=== PATIENT | female | born 1970 | race Caucasian/White ===

== ENCOUNTER 2020-04-26 15:06 | Emergency (ER) | payer OTHER, SELFPAY ==
[2020-04-26 15:23] VITALS: BP 94/57; PULSE 93; RESP 16; TEMP 36.7; O2SAT 97
--- NOTE | 2020-04-26 16:09 | ED.SKABFB ---
HPI - Skin/Abscess/Foreign Bdy General Chief complaint: Skin/Abscess/Foreign Body <Rayne Sofia PA-C - Last Filed: 04/26/20 16:16> Stated complaint: breaking out in a rash <Rayne Sofia PA-C - Last Filed: 04/26/20 16:16> Time Seen by Provider: 04/26/20 15:27 <Rayne Sofia PA-C - Last Filed: 04/26/20 16:16> Source: patient <Rayne Sofia PA-C - Last Filed: 04/26/20 16:16> Mode of arrival: ambulatory <Rayne Sofia PA-C - Last Filed: 04/26/20 16:16> Limitations: no limitations <Rayne Sofia PA-C - Last Filed: 04/26/20 16:16> History of Present Illness HPI narrative: This is a 49 year old female that presents to the ER for rash x 1 week. Reports she noted a rash after being in her garden. Reports the rash is itchy. It started on her legs. She now has some lesions on her arms and back. She has taken Benadryl with little relief. No new lotions, medications or soaps. No one in the household with similar rash. Denies fever. <Rayne Sofia PA-C - Last Filed: 04/26/20 16:16> Related Data Allergies/Adverse reactions: Allergies Allergy/AdvReac Type Severity Reaction Status Date / Time No Known Allergies Allergy Unverified 04/26/20 15:26 <Rayne Sofia PA-C - Last Filed: 04/26/20 16:16> Review of Systems Review of Systems: Narrative: CONSTITUTIONAL: Denies fever SKIN: Reports rash and itching. <Rayne Sofia PA-C - Last Filed: 04/26/20 16:16> All systems reviewed & are unremarkable except as noted in HPI and below <Rayne Sofia PA-C - Last Filed: 04/26/20 16:16> PMFSH Past Medical History Medical History: Medical History (Updated 04/26/20 @ 16:16 by Rayne Sofia PA-C) No active medical problems <Rayne Sofia PA-C - Last Filed: 04/26/20 16:16> Family History Family History: Family History (Updated 05/14/14 @ 07:13 by DOCTOR UNKNOWN) Mother Hypertension Family history of Alzheimer's disease Father Acute myocardial infarction <LÓPEZ Wilcox Last Filed: 04/26/20 16:16> Social History Social History: Social History Alcohol intake: current Gender identity (if verbalized by the patient): Female <LÓPEZ Wilcox Last Filed: 04/26/20 16:16> Exam Narrative: Exam Narrative: GENERAL: Well-appearing, well-nourished, and in no acute distress. HEAD: Normocephalic, atraumatic. EYES: EOMI. EXTREMITIES: Normal range of motion. No edema. SKIN: Warm, dry. Small (0.5cm) scattered red papules and scabs present on the legs. A few noted on the upper arms and back NEURO: No focal deficits. Alert and oriented x3. PSYCH: Normal mood and affect <LÓPEZ Wilcox Last Filed: 04/26/20 16:16> Course Vital Signs Vital signs: Vital Signs Temperature 36.7 C 04/26/20 15:23 Pulse Rate 93 04/26/20 15:23 Respiratory Rate 16 04/26/20 15:23 Blood Pressure 94/57 L 04/26/20 15:23 Pulse Oximetry 97 04/26/20 15:23 Temperature 36.7 C 04/26/20 15:23 Pulse Rate 93 04/26/20 15:23 Respiratory Rate 16 04/26/20 15:23 Blood Pressure 94/57 L 04/26/20 15:23 Pulse Oximetry 97 04/26/20 15:23 <LÓPEZ Wilcox Last Filed: 04/26/20 16:16> Vital Signs Temperature 36.7 C 04/26/20 15:23 Pulse Rate 93 04/26/20 15:23 Respiratory Rate 16 04/26/20 15:23 Blood Pressure 94/57 L 04/26/20 15:23 Pulse Oximetry 97 04/26/20 15:23 Temperature 36.7 C 04/26/20 15:23 Pulse Rate 93 04/26/20 15:23 Respiratory Rate 16 04/26/20 15:23 Blood Pressure 94/57 L 04/26/20 15:23 Pulse Oximetry 97 04/26/20 15:23 <Karen Mcmanus MD - Last Filed: 04/26/20 16:31> MDM - Skin/Abscess/Foreign Bdy MDM Narrative Medical decision making narrative: Patient presents to the emergency department for itchy rash x1 week. She is afebrile. Scattered scabs and papules noted on the legs primarily. Will be started on steroid taper and was instructed on ant
== END 2020-04-26 16:30 | disposition home or self-care (01) ==
PROVIDERS: Emergency Provider Emergency Medicine; PCP Internal Medicine
DX: R21 Rash and other nonspecific skin eruption (principal)
CPT/HCPCS: 99283

== ENCOUNTER 2021-03-04 14:00 | Outpatient (RCR) | payer OTHER, SELFPAY ==
[2021-01-24 13:57] VITALS: BP_SYST 160
--- NOTE | 2021-01-24 14:54 | PTOPEVAL ---
PHYSICAL THERAPY EVALUATION AND PLAN OF CARE 01-24-21 Thank you for referring Mirna Tellez to [facility], for the diagnosis of R shoulder strain, glenoid labrum strain. Mirna is scheduled to be seen for therapy? 2 x/week for 6 weeks, per order. Please review, sign, date and return this plan of care FLORIN. I agree with and certify that the following plan of care is medically necessary. Referring Physician Date Attending Provider: Guera Monique MD *PT Outpatient Evaluation Document 01/24/21 13:57 J LUIS (Rec: 01/24/21 14:54 J LUIS [id number]) Past Medical History Source of Past Medical History Patient Gastrointestinal History Hx Hernia Yes: surgery Musculoskeletal History Hx Arthritis Yes: B hands; Hx Other Musculoskeletal Disorders Yes: L plantar fasciitis Integumentary History Hx Psoriasis Yes: ? have area on shoulder- going to see labor relations manager about it Other History Hx Other Medical Conditions Yes: have had first COVID vaccine Evaluation Information Problem Diagnosis R shoulder strain; injury glenoid labrum Onset December 16, 2020 Subjective Information had injured shoulder about 2 Query Text:As Reported By Patient/ yrs ago, lifting big flower Family pot; it got better, but still not totally right; went to start the commissions specialist with pull start, then onset of shoulder pain; it has gotten better since then; Diagnostic Tests X-Rays For This Problem Yes: per pt: no fracture MRI For This Problem No Other Tests For This Problem No Previous Treatments Previous Treatments For This Problem no PT for shoulder Prior Level of Function Activity Level (Last 3 Months) 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
--- NOTE | 2021-02-04 14:30 | PCPTNOTE ---
Patient did not show up for scheduled appointment this date. Called and left voicemail about missed appointment, reminded Pt of upcoming appointment 02/07/21 @15:30. This is Pt's first N/S.
--- NOTE | 2021-02-18 14:25 | PCPTNOTE ---
Patient did not show up for scheduled appointment this date. Called and left voicemail about missed appointment and reminded of upcoming appointment on 02/22/2021 at 13:30.
--- NOTE | 2021-02-28 14:32 | PCPTNOTE ---
Patient did not show up for scheduled appointment this date. Called and left voicemail about missed appointment and reminded Pt of upcoming appointment 03/04/2021 @ 14:00
--- NOTE | 2021-03-07 14:20 | PCPTNOTE ---
pt called and canceled today's reevaluation.
--- NOTE | 2021-03-28 09:46 | PCPTNOTE ---
PHYSICAL THERAPY DISCHARGE 03-28-21 Attending Provider: Guera Monique MD Patient:Mirna Tellze Date of :1970 Mrs. Tellez has not returned for any further treatments since 03/04/2021, therefore she will be discharged at this time. She has received 8 PT sessions, for the diagnosis of R shoulder pain. Mirna did not show for 3 and called/canceled 1 appointment. The goals were not assessed. Thank you for referring Mirna to [facility]. Please review, sign, date and return this discharge summary FLORIN. I have been updated about the patient's current status and I agree with discharge from the above service at this time. Referring Physician Date
== END 2021-03-31 16:49 | disposition home or self-care (01) ==
LOC: ANHPT 14:00
PROVIDERS: PCP Internal Medicine; Visit Provider Internal Medicine
DX: S46.011D Strain of muscle(s) and tendon(s) of the rotator cuff of right shoulder, subsequent encounter (principal)
CPT/HCPCS: 97014; 97110; 97140; 97161; G0283

== ENCOUNTER 2022-04-08 09:45 | Emergency (ER) | payer OTHER, SELFPAY ==
--- NOTE | ~2022-04-08 | XR_ITS ---
XR ankle RT min 3V 04/08/2022 10:12 INDICATION: Right ankle pain PROCEDURE: 4 views right ankle COMPARISON: 04/23/2019 FINDINGS: Fracture, dislocation or subluxation is not identified. Ankle mortise intact. The soft tiss ues appear within normal limits. No foreign bodies are identified. IMPRESSION: 1: NO ACUTE BONE OR JOINT ABNORMALITY IDENTIFIED. Reviewed, dictated and finalized at location A.
--- NOTE | ~2022-04-08 | US_ITS ---
EXAMINATION:US venous doppler LE RT INDICATION:Right ankle redness TECHNIQUE: Multiple grayscale, color flow and Doppler images of the right lower extremity deep venous systems were obtained and reviewed. COMPARISON:No prior studies for comparison. FINDINGS: The common femoral, superficial femoral and popliteal veins demonstrate normal respiratory variation, augmentation and compressibility. Color flow is also seen within the posterior tibial, pe roneal, greater saphenous and profunda veins. IMPRESSION: 1: No lower extremity deep venous thrombosis. Reviewed, dictated and finalized at location A.
[2022-04-08 09:53] VITALS: BP 133/82; PULSE 90; RESP 16; TEMP 36.6; O2SAT 97
[2022-04-08 10:23] LABS: Basophils Absolute Auto 0.1 K/mm3 (0.0-0.1); Basophils Percent Auto 0.8 % (0.2-1.2); Eosinophils Absolute Auto 0.1 K/mm3 (0-0.3); Eosinophils Percent Auto 1.5 % (0-4.4); Hematocrit 36.8 % (37.0-47.0); Hemoglobin 11.7 g/dL (12.0-15.0); Immature Granulocyte Absolute 0.02 K/mm3 (0.00-0.031); Immature Granulocyte Percent A 0.3 % (0-0.5); Lymphocytes Absolute Auto 2.06 K/mm3 (0.9-3.2); Lymphocytes Percent Auto 33.8 % (18.3-44.2); Mean Corpuscular HGB Conc 31.8 g/dl (32-36); Mean Corpuscular Hemoglobin 29.9 pg (26-34); Mean Corpuscular Volume 94.1 fl (80-100); Mean Platelet Volume 10.1 fl (7.4-10.4); Monocytes Absolute Auto 0.5 K/mm3 (0.1-0.6); Monocytes Percent Auto 8.2 % (2.6-8.5); Neutrophils Absolute Auto 3.4 K/mm3 (1.3-6.7); Neutrophils Percent Auto 55.4 % (45.5-73.1); Platelet Count Result 228 k/mm3 (150-375); Red Blood Count 3.91 M/mm3 (4.2-5.4); Red Cell Distribution Width 13.7 % (11.5-14.5); White Blood Count 6.1 K/mm3 (4.5-10.0)
[2022-04-08] MEDS: IBUPROFEN 600 MG TABLET PO (10:25)
[2022-04-08 10:33] LABS: Alanine Aminotransferase 21 U/L (6-35); Albumin Level 4.7 g/dL (3.5-5.1); Alkaline Phosphatase 72 U/L (38-126); Anion Gap 6 mmol/L (8-16); Aspartate Amino Transferase 22 U/L (14-36); Bilirubin,Total 0.4 mg/dL (0.2-1.3); Blood Urea Nitrogen 13 mg/dL (7-17); Calcium 9.5 mg/dL (8.4-10.2); Carbon Dioxide 29 mmol/L (22-30); Chloride 105 mmol/L (98-107); Estimated CRCL calculation 53 ml/min; Estimated Glomerular Filt Rate > 60; Glucose 95 mg/dL (65-110); Sodium 140 mmol/L (137-145)
[2022-04-08 10:37] LABS: Prothrombin Time 12.5 Seconds (11.1-14.7)
[2022-04-08 10:38] LABS: Partial Thromboplastin Time 33.5 SECONDS (22.3-36.8)
[2022-04-08 10:40] LABS: D Dimer 0.71 ug/mL (<0.48)
--- NOTE | 2022-04-08 11:39 | ED.EXTPRO ---
HPI - Extremity Problem General Chief complaint: Extremity Problem,Nontraumatic Stated complaint: wound/abcess to right leg Time Seen by Provider: 04/08/22 09:51 Source: patient and RN notes reviewed Mode of arrival: ambulatory Limitations: no limitations History of Present Illness HPI Narrative: This is a 51 year old female who presents for evaluation of right ankle wound. Patient states today she notices some tenderness to her right medial ankle and a small area of redness. Her pain is worse with walking and touching. She denies any trauma. She is here due to concern for blood clots, and she states her mother had blood clot in the past. She denies history of DVT or PE. She also denies chest pain, sob, nausea, vomiting or fever. Onset (ago): day(s) Related Data Home Medications Medication Instructions Recorded Confirmed diphenhydramine HCl 25 mg capsule mg 04/08/22 (Banophen) lovastatin 20 mg tablet mg 04/08/22 Allergies Allergy/AdvReac Type Severity Reaction Status Date / Time No Known Allergies Allergy Verified 04/08/22 09:56 Review of Systems Review of Systems: All systems reviewed & are unremarkable except as noted in HPI and below Constitutional: Constitutional: Denies chills and Denies fever(s) Cardiovascular: Cardiovascular: Denies chest pain and Denies rapid heart rate Respiratory: Respiratory: Denies dyspnea Gastrointestinal: Gastrointestinal: Denies nausea and Denies vomiting Musculoskeletal: Musculoskeletal: Reports arthralgias and Denies muscle cramps Integumentary/Breasts: Skin/Breast: Reports erythema and Reports rash PMFSH Past Medical History Medical History (Updated 04/08/22 @ 12:01 by Libby Carreon MD) No active medical problems Family History Family History (Updated 05/14/14 @ 07:13 by DOCTOR UNKNOWN) Mother Hypertension Family history of Alzheimer's disease Father Acute myocardial infarction Social History Social History Alcohol intake: current Gender identity (if verbalized by the patient): Female Exam Const: General: alert Nutritional Appearance: well nourished Orientation/consciousness: patient oriented x3 Limitations: no limitations Eyes: EOM: EOMs intact bilaterally Chest: Chest palpation & inspection: normal inspection of the chest Resp: Effort & Inspection: normal respiratory effort Neuro: General: patient oriented x3, moves all extremities and CN's II-XI intact bilaterally Extrem: General: no pedal edema Other: FROM, no swelling to right ankle, there is small area of redness with tenderness to medial ankle, no calf tenderness Psych: Mental Status: mental status grossly normal Affect: normal affect Attitude: cooperative Course Reevaluation(s) Reevaluation #1: I discussed with patient that US was negative for DVT. I Discussed treatment with ibuprofen and antibiotics for cellulitis. She will be discharged. Date: 04/08/22 Time: 12:00 Vital Signs Vital signs: Vital Signs Temperature 97.9 F 04/08/22 09:53 Pulse Rate 90 04/08/22 09:53 Respiratory Rate 16 04/08/22 09:53 Blood Pressure 133/82 04/08/22 09:53 Pulse Oximetry 97 04/08/22 09:53 Oxygen Delivery Room Air 04/08/22 09:53 Temperature 97.9 F 04/08/22 09:53 Pulse Rate 90 04/08/22 09:53 Respiratory Rate 16 04/08/22 09:53 Blood Pressure 133/82 04/08/22 09:53 Pulse Oximetry 97 04/08/22 09:53 Oxygen Delivery Room Air 04/08/22 09:53 MDM - Extremity (Nontraumatic) Lab Data Attestation: I reviewed the patient's lab results. Result diagrams: 04/08/22 10:17 04/08/22 10:17 Labs: Lab Results 04/08/22 04/08/22 04/08/22 Range/Units 10:17 10:17 10:17 WBC 6.1 (4.5-10.0) K/mm3 RBC 3.91 L (4.2-5.4) M/mm3 Hgb 11.7 L (12.0-15.0) g/dL Hct 36.8 L (37.0-47.0) % MCV 94.1 (80-100) fl MCH 29.9 (26-34) pg MCHC 31.8 L (32-36) g/dl RDW 13.7 (11.5-14.5)
== END 2022-04-08 12:31 | disposition home or self-care (01) ==
PROVIDERS: Emergency Provider General Practice; PCP Internal Medicine
DX: L03.115 Cellulitis of right lower limb (principal)
CPT/HCPCS: 36415; 73610; 80053; 85025; 85380; 85610; 85730; 93971; 99284; A9270

== ENCOUNTER 2023-04-27 16:17 | Emergency (ER) | payer OTHER, SELFPAY ==
[2023-04-27 16:21] VITALS: BP 157/86; PULSE 80; RESP 20; TEMP 36.6; O2SAT 100
[2023-04-27 16:43] LABS: Basophils Percent Auto 0.1 % (0.2-1.2); Hematocrit 39.9 % (37.0-47.0); Hemoglobin 12.8 g/dL (12.0-15.0); Immature Granulocyte Absolute 0.11 K/mm3 (0.00-0.031); Immature Granulocyte Percent A 0.6 % (0-0.5); Lymphocytes Absolute Auto 0.88 K/mm3 (0.9-3.2); Lymphocytes Percent Auto 5.2 % (18.3-44.2); Mean Corpuscular HGB Conc 32.1 g/dl (32-36); Mean Corpuscular Hemoglobin 29.8 pg (26-34); Mean Platelet Volume 10.1 fl (7.4-10.4); Monocytes Absolute Auto 0.7 K/mm3 (0.1-0.6); Neutrophils Absolute Auto 15.3 K/mm3 (1.3-6.7); Neutrophils Percent Auto 90.1 % (45.5-73.1); Platelet Count Result 239 k/mm3 (150-375); Red Blood Count 4.29 M/mm3 (4.2-5.4); Red Cell Distribution Width 13.1 % (11.5-14.5); White Blood Count 16.9 K/mm3 (4.5-10.0)
[2023-04-27 17:04] LABS: Albumin Level 5.3 g/dL (3.5-5.1); Alkaline Phosphatase 72 U/L (38-126); Anion Gap 15 mmol/L (8-16); Aspartate Amino Transferase 33 U/L (14-36); Bilirubin,Total 0.4 mg/dL (0.2-1.3); Blood Urea Nitrogen 17 mg/dL (7-17); Calcium 10.4 mg/dL (8.4-10.2); Carbon Dioxide 30 mmol/L (22-30); Chloride 102 mmol/L (98-107); Estimated CRCL calculation 53 ml/min; Estimated Glomerular Filt Rate > 60; Glucose 163 mg/dL (65-110); Lipase 56 U/L (23-300); Potassium 3.8 mmol/L (3.4-5.0); Sodium 147 mmol/L (137-145)
[2023-04-27 17:24] LABS: Alanine Aminotransferase 51 U/L (6-35)
[2023-04-27 19:49] LABS: Appearance Urine Cloudy (Clear); Bacteria Urine None Seen /hpf; Bilirubin Urine Negative (Negative); Blood Urine 1+ (Negative); Color Urine Yellow (Yellow); Glucose Urine UA Negative (Negative); Ketones Urine Negative (Negative); Leukocyte Esterase Ur Negative LEU/UL (Negative); Nitrate Urine Negative (Negative); Non Pathogenic Casts 0-2; Protein Urine 3+ mg/dL (Negative); RBC Urine 21-50 /hpf (0-2); Specific Grav Ur 1.022 (1.001-1.035); Squamous Epithelial Cell Urine Occasional /hpf (Few); Urobilinogen Urine 0.2 mg/dL (<2.0); WBC Urine 0-5 /hpf
[2023-04-27 19:52] LABS: Influenza A QL RT-PCR Negative (Negative); Influenza B QL RT-PCR Negative (Negative); RSV RNA, RT-PCR Negative (Negative); SARS-CoV-2 RNA PCR Negative (Negative)
[2023-04-27] MEDS: SODIUM CHLORIDE 0.9% IV 2,000 ML 999 ML IV CONT (19:58)
[2023-04-27] MEDS: FAMOTIDINE 20 MG/2 ML VIAL IV PUSH (20:01)
[2023-04-27] MEDS: HALOPERIDOL LACTATE 5 MG/ML VIAL IM (20:01)
[2023-04-27] MEDS: ONDANSETRON INJ 4 MG/2 ML VIAL IV PUSH (20:01)
[2023-04-27 20:13] LABS: Amphetamine Screen Urine Negative (Negative); Barbiturate Screen Urine Negative (Negative); Benzodiazepines Screen Urine Negative (Negative); Cannabinoid Screen Urine Positive (Negative); Cocaine Screen Urine Negative (Negative); Methadone Screen Urine Negative (Negative); Opiate Screen Urine Negative (Negative); Phencyclidine Screen Urine Negative (Negative)
[2023-04-27 20:15] LABS: Add Urine Microscopic? YES
--- NOTE | 2023-04-27 21:12 | ED.GENADULT ---
HPI - General Adult General Chief complaint: Nausea/Vomiting/Diarrhea Stated complaint: vomiting Time Seen by Provider: 04/27/23 18:59 History of Present Illness HPI narrative: this is a 52-year-old female presenting ED with chief complaint of nausea vomiting diarrhea x1 day. Patient has been able tolerate water throughout the day. She denies fever chills chest pain difficulty breathing or abdominal pain. Patient has had this happen in the past. She denies sick contacts at home is vaccinated against COVID and flu. Patient is a marijuana user. Related Data Home Medications Medication Instructions Recorded Confirmed diphenhydramine HCl 25 mg capsule mg 04/08/22 (Banophen) lovastatin 20 mg tablet mg 04/08/22 Allergies Allergy/AdvReac Type Severity Reaction Status Date / Time No Known Allergies Allergy Verified 04/27/23 16:20 [facility] Past Medical History Medical History No active medical problems Family History Family History Mother Hypertension Family history of Alzheimer's disease Father Acute myocardial infarction Social History Social History Alcohol intake: current Gender identity (if verbalized by the patient): Female Exam Narrative: APPEARANCE: No apparent distress. Head: atraumatic. EYES: EOMI, NOSE: Atraumatic NECK: Trachea midline RESPIRATORY: No increased rate of breathing clear to auscultation CARDIOVASCULAR: RRR, no peripheral edema ABDOMINAL: Abdomen is soft nontender no guarding or rebound, no CVA tenderness MUSCULOSKELETAl: No obvious deformities NEURO: Alert. Moving 4/4 extremities SKIN:: Warm, dry. Normal color PSYCHIATRIC: Normal affect Course Vital Signs Vital signs: Vital Signs Temperature 97.9 F 04/27/23 16:21 Pulse Rate 80 04/27/23 16:21 Respiratory Rate 20 04/27/23 16:21 Blood Pressure 157/86 H 04/27/23 16:21 Pulse Oximetry 100 04/27/23 16:21 Oxygen Delivery Room Air 04/27/23 16:21 Temperature 97.9 F 04/27/23 16:21 Pulse Rate 80 04/27/23 16:21 Respiratory Rate 20 04/27/23 16:21 Blood Pressure 157/86 H 04/27/23 16:21 Pulse Oximetry 100 04/27/23 16:21 Oxygen Delivery Room Air 04/27/23 16:21 Medical Decision Making [facility] Narrative Medical decision making narrative: -Presentation: 52-year-old female presenting with nausea vomiting x1 day. Benign abdominal exam. Stable vital signs. Daily marijuana user. 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 Sodium slightly elevated 147. Rest of laboratory studies within normal limits. Urine had 21-50 red blood cells but no signs of infection. Urine drug screen positive for cannabinoids. Viral swabs negative. -Discussion of Management/Consultants: None -Dx tests considered but not ordered: CT abdomen pelvis -stable vital signs and a benign abdominal exam -Procedures: none -Interventions: 2 L normal saline, 5 mg IM Haldol, 20 mg Pepcid, 4 mg Zofran -Shared decision making / Disposition: upon re-evaluation patient is able to tolerate p.o.. Abdominal exam is still benign and her vital signs are stable. Patient will be discharged with Zofran and given return precautions. -RX: Zofran. Vital Signs Vital Signs: Vital Signs Temperature 97.9 F 04/27/23 16:21 Pulse Rate 80 04/27/23 16:21 Respiratory Rate 20 04/27/23 16:21 Blood Pressure 157/86 H 04/27/23 16:21 Pulse Oximetry 100 04/27/23 16:21 Oxygen Delivery Room Air 04/27/23 16:21 Temperature 97.
[2023-04-27 22:00] VITALS: BP 144/93; PULSE 86; RESP 18; O2SAT 98
== END 2023-04-27 22:02 | disposition home or self-care (01) ==
PROVIDERS: Preventive Medicine Aerospace Medicine; Emergency Provider Emergency Medicine; PCP Internal Medicine
DX: R11.2 Nausea with vomiting, unspecified (principal)
CPT/HCPCS: 36415; 80053; 80307; 81001; 83690; 85025; 87637; 96361; 96372; 96374; 96375; 99284; J1630; J2405; J7030